=== PATIENT | female | born 1995 | race African-American/Black ===

== ENCOUNTER 2018-03-29 17:28 | Emergency (ER) | payer OTHER, SELFPAY ==
[2018-03-29 18:11] LABS: #Basophils 0.1 thou/uL (0.0-0.2); #Eosinphils 0.2 thou/uL (0.0-0.7); #Lymphocytes 2.2 thou/uL (1.20-3.40); #Monocytes 0.6 thou/uL (0.11-0.59); #Neutrophils 3.2 thou/uL (1.40-6.50); %Basophils 0.9 % (0.0-1.0); %Lymphocytes 34.9 % (21.0-51.0); %Monocytes 10.2 % (0.0-10.0); Mean Corpuscular Hemoglobin 28.5 pg (27.0-31.0); Mean Platelet Volume 7.4 fL (7.4-10.4); Platelet Count 298 thou/uL (130-400); RBC Distribution Width 12.9 % (11.5-14.5); Red Blood Cell (RBC) Count 4.55 mill/uL (4.20-5.40); White Blood Cell (WBC) Count 6.3 thou/uL (4.8-10.8)
[2018-03-29 18:27] LABS: Bilirubin Negative (Negative); Blood, Urine Large (Negative); Clarity CLEAR (Clear); Glucose, Urine (Dipstick) Negative (Negative); Leukocyte Small (Negative); Nitrite Negative (Negative); Protein, Urine (Dipstick) Negative (Neg-Trace); Specific Gravity, Urine 1.027 (1.002-1.036)
[2018-03-29 18:30] LABS: Bacteria/HPF None Seen HPF (None Seen); Hyaline Casts/LPF 0-3 HYALINE CAST LPF (0-3 Hyaline); Pathc Cast-AUWi Flag 0.72 (0-2.49); RBC/HPF GREATER THAN 50-TNTC HPF (0-3); WBC/HPF 21-50 HPF (0-3)
--- NOTE | 2018-03-29 20:01 | ULT ---
PELVIC ULTRASOUND 03/29/18 COMPARISON: None. HISTORY: Positive test with vaginal bleeding. TECHNIQUE: Multiplanar ibarra scale sonographic imaging of the pelvis is obtained with transabdominal and endovagi nal imaging. The ovaries are assessed with color flow and spectral analysis. FINDINGS: The uterus is retroverted and measures 8.5 x 4.6 x 5.0 cm. The endometrial strip measures 6 mm in AP dimension. No intrauterine gestational sac is seen. Right ovary measures 1.5 x 3.0 x 1.8 cm and left ovary measures 2.1 x 3.1 x 2.0 cm. There is normal b lood flow within both ovaries without evidence for an ovarian or adnexal mass. No significant free fl uid is seen in the pelvis. IMPRESSION: Unremarkable pelvic ultrasound. No intrauterine gestational sac is seen. Followup imaging in 48 hours and repeat quantitative beta HCG in 48 hours is advised as clinically warranted. POS: [facility]
== END 2018-03-29 20:40 | disposition home or self-care (01) ==
LOC: ERS 17:28
DX: N93.9 Abnormal uterine and vaginal bleeding, unspecified (principal)
CPT/HCPCS: 36415; 76856; 81003; 81015; 84702; 85025; 86900; 86901

== ENCOUNTER 2018-04-01 13:13 | Emergency (ER) | payer SELFPAY ==
[2018-04-02 22:42] LABS: Chlamydia by PCR Not Detected (NotDetected); GC by PCR Not Detected (NotDetected)
== END 2018-04-01 15:28 | disposition home or self-care (01) ==
LOC: ERS 13:13
DX: O03.9 Complete or unspecified spontaneous abortion without complication (principal)
CPT/HCPCS: 36415; 84702; 87480; 87491; 87510; 87591; 87660; 99284

== ENCOUNTER 2018-06-11 19:33 | Emergency (ER) | payer OTHER, SELFPAY ==
[2018-06-11 20:31] LABS: #Eosinphils 0.1 thou/uL (0.0-0.7); #Lymphocytes 1.1 thou/uL (1.20-3.40); #Monocytes 0.5 thou/uL (0.11-0.59); #Neutrophils 9.8 thou/uL (1.40-6.50); %Basophils 0.2 % (0.0-1.0); %Eosinophils 0.5 % (0.0-10.0); %Lymphocytes 9.6 % (21.0-51.0); %Monocytes 4.1 % (0.0-10.0); %Neutrophils 85.6 % (42.0-75.0); Hemoglobin 13.8 g/dL (12.0-16.0); Mean Corpuscular HGB CONC 33.8 g/dL (32.0-36.0); Mean Corpuscular Hemoglobin 29.3 pg (27.0-31.0); Mean Corpuscular Volume 86.8 fL (78.0-98.0); Mean Platelet Volume 7.7 fL (7.4-10.4); Platelet Count 337 thou/uL (130-400); RBC Distribution Width 11.6 % (11.5-14.5); White Blood Cell (WBC) Count 11.5 thou/uL (4.8-10.8)
[2018-06-11 20:48] LABS: ALT (SGPT) 11 U/L (8-55); AST (SGOT) 16 U/L (5-34); Albumin 4.2 g/dL (3.5-5.0); Alkaline Phosphatase 38 U/L (40-150); Anion Gap 15 mmol/L (10-20); BUN (Urea Nitrogen) 6 mg/dL (7.0-18.7); Bilirubin, Total 0.4 mg/dL (0.2-1.2); Calc. Creatinine Clearance 0 mL/min (70-130); Calcium 9.7 mg/dL (7.8-10.44); Carbon Dioxide 21 mmol/L (22-29); Chloride 101 mmol/L (98-107); Estimated GFR-MDRD Greater than 90; Globulin 3.8 g/dL (2.4-3.5); Glucose 108 mg/dL (70-105); Lipase 28 U/L (8-78); Potassium 3.3 mmol/L (3.5-5.1); Sodium 134 mmol/L (136-145)
[2018-06-11] MEDS ORDERED: Promethazine HCl 25 MG/ML VIAL ONE ×3 (21:38→23:03)
[2018-06-11] MEDS ORDERED: Ondansetron HCl/PF 4 MG/2 ML Vial ONE ×2 (21:38→23:03)
[2018-06-11 22:04] LABS: Bilirubin Negative (Negative); Blood, Urine Negative (Negative); Clarity CLEAR (Clear); Glucose, Urine (Dipstick) Negative (Negative); Leukocyte Negative (Negative); Nitrite Negative (Negative); Protein, Urine (Dipstick) 100 mg/dL (Neg-Trace); Specific Gravity, Urine 1.025 (1.002-1.036); Urobilinogen 0.2 mg/dL (0.2-1.0); pH, Urine 8.5 (5.0-9.0)
[2018-06-11 22:05] LABS: Bacteria/HPF None Seen HPF (None Seen); Hyaline Casts/LPF 0-3 HYALINE CAST LPF (0-3 Hyaline); Pathc Cast-AUWi Flag 0.14 (0-2.49); RBC/HPF 0-3 HPF (0-3); WBC/HPF 0-3 HPF (0-3)
[2018-06-11] MEDS ORDERED: Mag-Al 1200 mg/1200 mg/30 ML UDCUP ONE (23:03)
[2018-06-11] MEDS ORDERED: Lidocaine Viscous Sol 2% 15 ml UD Cup ONE (23:03)
== END 2018-06-12 01:12 | disposition home or self-care (01) ==
LOC: ERS 19:33
DX: O21.9 Vomiting of pregnancy, unspecified (principal); Z3A.17 17 weeks gestation of pregnancy
CPT/HCPCS: 36415; 80053; 81003; 81015; 83690; 84702; 85025; 96361; 96365; 96366; 96375; 96376; J2405; J2550

== ENCOUNTER 2020-03-24 09:02 | Emergency (ER) | payer BC, OTHER ==
[2020-03-25 12:47] LABS: SARS-CoV-2 MS2 Positive; SARS-CoV-2 N Gene Positive; SARS-CoV-2 S Gene Positive; SARS-CoV-2 orf1ab Positive
== END 2020-03-24 09:40 | disposition home or self-care (01) ==
LOC: ERS 09:02
DX: U07.1 COVID-19 (principal)
CPT/HCPCS: 87635; 99283; U0003